=== PATIENT | male | born 1955 ===

== ENCOUNTER 2019-08-31 07:37 | Emergency (ER) | payer BC ==
[~2019-08-31] VITALS: Ht 170.2 cm; Wt 65.8 kg
[2019-08-31] MEDS ORDERED: CALCIUM 600 +1 EAC7 PO (07:59)
[2019-08-31] MEDS ORDERED: SPIRONOLACTONE50 MG PO (08:00)
[2019-08-31] MEDS ORDERED: ESTRACE2 MG PO (08:00)
== END 2019-08-31 08:55 | disposition home or self-care (01) ==
LOC: ER 07:37
DX: R21 Rash and other nonspecific skin eruption (principal)

== ENCOUNTER → 2019-09-04 | Emergency (ER) | payer BC ==
[~2019-09-04] MED LIST: CALCIUM 600 +1 EAC7 PO; ESTRACE2 MG PO; SPIRONOLACTONE50 MG PO
== END | disposition left against medical advice (07) ==
LOC: ER 04:47
DX: Z53.20 Procedure and treatment not carried out because of patient's decision for unspecified reasons (principal)

== ENCOUNTER 2020-03-22 17:01 | Outpatient (CLI) | payer OTHER | END 2020-03-22 17:30 | disposition home or self-care (01) | LOC: LAB 17:01 | PROVIDERS: ATTEND General Practice | DX: Z20.828 Contact with and (suspected) exposure to other viral communicable diseases (principal); Z11.59 Encounter for screening for other viral diseases ==